=== PATIENT | male | born 1990 | race Caucasian/White ===

== ENCOUNTER 2023-09-23 14:24 | Emergency (ER) | payer OTHER, SELFPAY ==
[2023-09-23 14:31] VITALS: BP 143/82; RESP 16; O2SAT 100; BMI 32.5
[2023-09-23 14:45] VITALS: PULSE 163; O2SAT 99
--- NOTE | 2023-09-23 14:45 | ED.NURSE ---
at bedside. Carotid artery massage completed by . HR returned to normal sinus rhythm. Continued to [facility].
[2023-09-23 14:55] VITALS: BP 140/95; PULSE 103; O2SAT 95
[2023-09-23 15:00] VITALS: PULSE 104; O2SAT 96
[2023-09-23 15:01] VITALS: BP 135/83; PULSE 100; O2SAT 96
--- NOTE | 2023-09-23 15:01 | ED.GENADULT ---
HPI - General Adult General Chief complaint: Chest Pain Stated complaint: Elevated heartrate Time Seen by Provider: 09/23/23 14:42 History of Present Illness HPI narrative: This 33-year-old male comes in with increased heart rate. He arrives with a heart rate at around 165 beats per minute. He states that this started about an hour prior to arrival. He states that he has just a slight bit of chest discomfort. He thinks this might have happened once before for very brief time with spontaneous resolution. He does report positive COVID result in the last week or so. He denies having any lightheadedness, nausea, vomiting, shortness of breath, or diaphoresis. He does not have any exercise intolerance. He is otherwise in good health. Related Data Home Medications Medication Instructions Recorded Confirmed calcium carbonate 200 mg calcium 200 mg PO .PRN 07/30/23 07/30/23 (500 mg) chewable tablet (Tums) omeprazole 10 mg capsule,delayed 10 mg PO ONCE 07/30/23 07/30/23 release Previous Rx's Medication Instructions Recorded pantoprazole 20 mg tablet,delayed 40 mg (2 x 20 mg) PO BID Gerd 30 08/06/23 release (Protonix) days #120 tabs Allergies Allergy/AdvReac Type Severity Reaction Status Date / Time No Known Drug Allergies Allergy Verified 07/30/23 13:34 Review of Systems Status of ROS: Reports: 10 or more systems reviewed and unremarkable except as noted in History and below Narrative: Constitutional: No fevers, no weight gain or loss. Eyes: No discharge. No vision changes. HENT: No congestion, no sore throat, no ear pain. Cardiovascular: No palpitations. Respiratory: No shortness of breath, no wheezes, no cough. Gastrointestinal: No abdominal pain, no vomiting, no diarrhea. Genitourinary: No dysuria, no hematuria. Musculoskeletal: Normal range of motion. Skin: No rashes, no pruritis. Neurological: No dizziness, weakness, sensory change, speech change. Endo/Heme/Allergies: No bruising or bleeding. No polydipsia. Pysch: no suicidality, no anxiety, no insomnia. All other systems reviewed and are negative. [facility] Medical History (Updated 09/23/23 @ 15:06 by Krishna Henry MD) GERD (gastroesophageal reflux disease) ?K21.9 - Gastro-esophageal reflux disease without esophagitis (ICD-10) Chest pain ?R07.9 - Chest pain, unspecified (ICD-10) Social History Smoking Status: Never smoker Do you use any of these nicotine containing products: Smokeless Tobacco Second hand tobacco smoke exposure: No How often do you have a drink containing alcohol: 2-4 times a month AUDIT-C Alcohol total score: 2 Non-prescribed substance use: denies use service: No Exam Narrative: Exam Narrative: Constitutional: Well-developed, well-nourished, no acute distress. HEENT: Normocephalic, atraumatic. Neck: Normal range of motion. Nontender. Supple. Heart: Regular. No murmurs. Tachycardia, rate around 165 beats per minute. Intact distal pulses. Lungs: Clear to auscultation. No chest discomfort. No wheezes, rhonchi, or rales. Abdomen: Normal bowel sounds. Nontender. No rebound tenderness. Genitalia: Deferred. Back: No midline tenderness. Normal range of motion. Extremities: Normal range of motion. No injury. Skin: Intact. No rash. Warm. No erythema or pallor. Neurologic: No altered sensation. No weakness. Alert and oriented. Psychiatric: No suicidality. No anxiety or depression. No insomnia. Nursing notes and vitals signs are reviewed. Const: Vital Signs, click to edit/add: Vital Signs - 24 hr 09/23/23 14:31 Respiratory Rate 16 Blood Pressure [Ri ght Upper Arm] 143/82 H Pulse Oximetry 100 Oxygen Delivery Me thod Room Air Course Vital Signs Vital signs: Initial Vital Signs Respiratory Rate 16 09/23/23 14:31 Blood Pressure 143/82 H 09/23/23 14:31 Blood Pressure Mean 102 09/23/23 14:31 Pulse Oximetry 100 09/23/23 14:31 Oxygen Delivery Method Room Air 09/23/23 14:31 Vital Signs Respiratory Rate 16 09/23/23 14:31 Blood Pressure 143/82 H 09/23/23 14:31 Pulse Oximetry 100 09/23/23 14:31 Oxygen Delivery Method Room Air 09/23/23 14:31 Respiratory Rate 16 09/23/23 14:31 Blood Pressure 143/82 H 09/23/23 14:31 Pulse Oximetry 100 09/23/23 14:31 Oxygen Delivery Method Room Air 09/23/23 14:31 Medical Decision Making MDM Narrative Medical decision making narrative: This patient comes in with super ventricular tachycardia as seen on EKG showing of rate of 165 beats per minute. As the nurse was preparing to place an IV I had the patient perform a Valsalva maneuver with no results. I then did carotid massage which did bring him back rather quickly into normal sinus rate and rhythm. A repeat EKG does confirm normal sinus rhythm with a rate of 97 beats per minute. I did discuss lab and imaging options that can be done which the patient and his significant other declined in a process of shared decision making. The patient does chew tobacco and does drink energy drinks. I cautioned him about these things and stated that the energy drinks can contribute to an episode like this. Additionally there could be some dysrhythmia related to his COVID diagnosis. Patient feels back to normal and is okay to be discharged home. He will return if symptoms are recurrent and persistent. ECG Data Attestation: I personally reviewed and interpreted this ECG as follows: Interpretation: Supraventricular tachycardia, rate 165 beats per minute. There are no specific ST or T-wave abnormalities. Repeat EKG after carotid massage shows normal sinus rhythm with a rate of 97 beats per minute. There are no ST or T-wave abnormalities. Discharge Plan Discharge Clinical Impression: Supraventricular tachycardia Patient Disposition: Home, Self-Care Condition: Improved Additional Instructions: Continue current plans. Cessation of chewing tobacco is advised. Caution use of stimulant drinks also. Follow up with MD or return if symptoms are recurrent or persistent. Prescriptions: No Action omeprazole 10 mg capsule,delayed release(DR/EC) 10 mg PO ONCE calcium carbonate [Tums] 200 mg calcium (500 mg) tablet,chewable 200 mg PO .PRN pantoprazole [Protonix] 20 mg tablet,delayed release (DR/EC) 40 mg PO BID 30 Days Qty: 120 2RF Follow Up/Referrals: Jude Hebert MD [Primary Care Provider] - Stand Alone Forms: Patient Feed Info Instructions
== END 2023-09-23 15:21 | disposition home or self-care (01) ==
LOC: ED 15:16
PROVIDERS: Emergency Provider Emergency Medicine Emergency Medical Services; PCP Internal Medicine
DX: I47.10 Supraventricular tachycardia, unspecified (principal)
CPT/HCPCS: 93005; 99284

== ENCOUNTER 2023-12-18 17:04 | Outpatient (CLI) | payer OTHER, SELFPAY | END 2023-12-18 17:05 | disposition home or self-care (01) | PROVIDERS: PCP Internal Medicine; Visit Provider Internal Medicine | DX: R53.1 Weakness (principal) | CPT/HCPCS: 80053; 82306; 84443 ==

== ENCOUNTER 2024-01-03 15:44 | Outpatient (CLI) | payer OTHER, SELFPAY ==
--- NOTE | 2024-01-03 16:00 | CRLHL7_ITS ---
For Patients: As a result of the Century Cures Act, medical imaging exams and procedure reports are released immediately into your electronic medical record. You may view this report before your referring provider. If you have questions, please contact your health care provider. Indication: Chronic sinusitis. Technique: Noncontrast axial CT of the paranasal sinuses with coronal reformats are provided. No comparisons. Findings: Mild mucosal thickening within the floor of the right maxillary sinus measuring 5 millimeters in thickness. Trace mucosal thickening within the floor of the left maxillary sinus. The remainder of the visualized paranasal sinuses are clear. Incidental right-sided koko bullosa. The ostiomeatal complexes are patent bilaterally. The visualized intraorbital contents appear within normal limits. Leftward nasal septal deviation with bony spur contacting the inferior left turbinate. Impression: 1. Mild right maxillary sinus mucosal thickening with trace mucosal thickening in left maxillary sinus. 2. Leftward nasal septal deviation with bony spur contacting the inferior left turbinate. Please note that all CT scans at this facility use dose modulation, iterative reconstruction, and/or weight-based dosing when appropriate to reduce radiation dose to as low as reasonably achievable. Dictated by Linden Mcqueen MD @ 01/04/2024 10:21:41 AM (Electronically Signed)
== END 2024-01-03 15:45 | disposition home or self-care (01) ==
LOC: CT 15:46
PROVIDERS: PCP Internal Medicine; Visit Provider Internal Medicine
DX: J34.89 Other specified disorders of nose and nasal sinuses (principal); J32.9 Chronic sinusitis, unspecified; J32.0 Chronic maxillary sinusitis; J34.2 Deviated nasal septum
CPT/HCPCS: 70486

== ENCOUNTER 2024-01-31 07:26 | Outpatient (CLI) | payer OTHER, SELFPAY ==
--- NOTE | 2024-01-31 08:00 | CT_ITS ---
Patient: ENOCH COLVIN Facility:?[facility] RIS Patient ID:?[id number] Site Patient ID:?[id number]. Site :?[id number] Study:?CT-Abdomen/Pelvis W/ 119CC [id number]/8/2024 8:02:29 AM Ordering Physician:?MARVA HERNANDEZ Final Report: Indication: Abdominal pain Technique: CT Abdomen/Pelvis W/ 119CC [id number] Please note that all CT scans at this facility use dose modulation, iterative reconstruction, and/or weight-based dosing when appropriate to reduce radiation dose to as low as reasonably achievable. Comparison: None Findings: Pleural-based nodule left lower lobe measuring 6.9 millimeters, considered incidental. No basilar infiltrate or pleural effusion. Liver parenchyma is within normal limits. Spleen is upper limits of normal in size. No splenic lesion. The pancreas is within normal limits. Normal gallbladder. Adrenal glands are within normal limits. Normal kidneys. No hiatal hernia. No bowel obstruction or free air. No free fluid or adenopathy. No abscess. A small fat filled right inguinal hernia appears to be present measuring 2.1 cm. Normal bladder. Normal appendix. Prostate is not enlarged. The ureters are within normal limits. No fracture is present. Early spurring at both hip joints. Impression: Normal appendix. No bowel obstruction or inflammatory changes. 2.1 cm fat filled right inguinal hernia. Mild degenerative arthrosis both hips. Please note that all CT scans at this facility use dose modulation, iterative reconstruction, and/or weight-based dosing when appropriate to reduce radiation dose to as low as reasonably achievable. Dictated by Franklyn Mckeon MD @ 01/31/2024 10:17:18 AM Signed by:?Franklyn Mckeon MD @01/31/2024 10:17:18 AM (Electronic Signature)
== END 2024-01-31 07:27 | disposition home or self-care (01) ==
LOC: CT 07:27
PROVIDERS: PCP Internal Medicine; Visit Provider Internal Medicine
DX: R10.9 Unspecified abdominal pain (principal); K40.90 Unilateral inguinal hernia, without obstruction or gangrene, not specified as recurrent; M16.0 Bilateral primary osteoarthritis of hip
CPT/HCPCS: 74177; Q9967

== ENCOUNTER 2024-04-20 21:50 | Emergency (ER) | payer OTHER, SELFPAY ==
[2024-04-20 21:59] VITALS: BP 136/101; PULSE 76; RESP 16; TEMP 36.6; O2SAT 95; BMI 31.2
--- NOTE | 2024-04-20 21:59 | ED_ITS ---
HPI - General Adult General Date Seen: 04/20/24 Chief complaint: Arrhythmia/Palpitations Stated complaint: Fast heart rate Time Seen by Provider: 04/20/24 21:58 History of Present Illness HPI narrative: 34-year-old male with history of anxiety, GERD, palpitations, SVT (noted on EKG 09/23/2023 in the ER), chewing tobacco use, presenting to the ER today with palpitations. He has a known history of SVT. His 1st prolonged episode was actually last August. He was seen here in the ER and converted with carotid massage. He has been experiencing intermittent but very brief episodes of palpitations off and on ever since then. Recently had a Holter monitor through his primary care provider and has an appointment scheduled in a few days to see a professional employer consultant for the 1st time because of these episodes of palpitations. Today he had a short run of palpitations earlier this afternoon that he thinks was probably SVT and resolved with carotid massage. This evening he started having another run of palpitations. His smart watch told him his heart rate was 185. He tried Valsalva maneuvers, carotid massage, ice water on his face and other maneuvers to break the arrhythmia but it would not break. He felt a mild fluttering in a mild discomfort in his chest. It persisted for about a 1/2 hour so he and his came here. As he was going through the triage process he felt the arrhythmia break and his heart rate feels back to normal now. He has no ongoing symptoms. No recent vomiting or diarrhea. No swelling in his legs. No fever. No shortness of breath. No history of thyroid disorder. No recent weight loss or weight gain. No stimulants or sympathomimetics. He does chew tobacco. He quit caffeine and pop after his 1st run of SVT last fall. Related Data Home Medications ?Medication ?Instructions ?Recorded ?Confirmed calcium carbonate (Tums) 200 mg PO .PRN 07/30/23 03/30/24 Previous Rx's ?Medication ?Instructions ?Recorded fluoxetine 10 mg capsule (Prozac) 10 mg PO QDAY #30 caps 11/15/23 omeprazole 20 mg capsule,delayed 20 mg PO BID #180 caps 03/10/24 release Allergies Allergy/AdvReac Type Severity Reaction Status Date / Time No Known Drug Allergies Allergy Verified 03/30/24 15:16 [facility] Medical History (Updated 04/20/24 @ 23:23 by Car Ibarra MD) Palpitations ?R00.2 - Palpitations (ICD-10) History of supraventricular tachycardia ?Z86.79 - Personal history of other diseases of the circulatory system (ICD- 10) History of ankle sprain ?Z87.828 - Personal history of other (healed) physical injury and trauma (ICD-10) Abdominal pain ?R10.9 - Unspecified abdominal pain (ICD-10) Sinus pressure ?J34.89 - Other specified disorders of nose and nasal sinuses (ICD-10) Anxiety ?F41.9 - Anxiety disorder, unspecified (ICD-10) GERD (gastroesophageal reflux disease) ?K21.9 - Gastro-esophageal reflux disease without esophagitis (ICD-10) Social History Smoking Status: Never smoker Do you use any of these nicotine containing products: None and Smokeless Tobacco Second hand tobacco smoke exposure: No How often do you have a drink containing alcohol: 2-4 times a month AUDIT-C Alcohol total score: 2 Non-prescribed substance use: denies use Little interest or pleasure in doing things: not at all Feeling down, depressed, or hopeless: not at all service: No Exam Narrative: Exam Narrative: Constitutional: Appears well-developed and well-nourished. Alert. Conversant. Non toxic. HENT: Head: Atraumatic. Nose: Nose normal. Mouth/Throat: Oral mucosa is clear and moist. no trismus. Pharynx normal. Tonsils symmetric. No tonsillar enlargement, erythema, or exudate. Eyes: Conjunctivae normal. EOM normal. Pupils equal, round, and reactive to light. No scleral icterus. Neck: Normal range of motion. Neck supple. No tracheal deviation present. Cardiovascular: Normal rate, regular rhythm. No gallop. No friction rub. No murmur heard. Symmetric radial artery pulses . No JVD Pulmonary/Chest: Effort normal. No stridor. No respiratory distress. No wheezes. No rales. No rhonchi . No tenderness. Abdominal: Soft. Bowel sounds normal. No distension. No mass. No tenderness. No rebound. No guarding. Musculoskeletal: RUE: Normal range of motion. No tenderness. No deformity LUE: Normal range of motion. No tenderness. No deformity RLE: Normal range of motion. No edema. No tenderness. No deformity LLE: Normal range of motion. No edema. No tenderness. No deformity Endocrine: No thyromegaly Neurological: Alert and oriented to person, place, and time. Normal strength. CN II-VII intact. No sensory deficit. GCS eye subscore is 4. GCS verbal subscore is 5. GCS motor subscore is 6. Normal coordination Skin: Skin is warm and dry. No rash noted. No pallor. Normal capillary refill. Psychiatric: Normal mood. Normal affect. Const: Vital Signs, click to edit/add: Vital Signs - 24 hr 04/20/24 21:59 Temperature 97.8 F Pulse Rate [Pulse Oximeter] 76 Respiratory Rate 16 Blood [facility]] 136/101 H Pulse Oximetry 95 Oxygen Delivery Me thod Room Air Course Vital Signs Vital signs: Initial Vital Signs Temperature 97.8 F 04/20/24 21:59 Temperature Source Temporal Artery Scan 04/20/24 21:59 Pulse Rate 76 04/20/24 21:59 Respiratory Rate 16 04/20/24 21:59 Blood Pressure 136/101 H 04/20/24 21:59 Blood Pressure Mean 112 H 04/20/24 21:59 Blood Pressure Position Sitting 04/20/24 21:59 Pulse Oximetry 95 04/20/24 21:59 Oxygen Delivery Method Room Air 04/20/24 21:59 Vital Signs Temperature 97.8 F 04/20/24 21:59 Pulse Rate 76 04/20/24 21:59 Respiratory Rate 16 04/20/24 21:59 Blood Pressure 136/101 H 04/20/24 21:59 Pulse Oximetry 95 04/20/24 21:59 Oxygen Delivery Method Room Air 04/20/24 21:59 Temperature 97.8 F 04/20/24 21:59 Pulse Rate 76 04/20/24 21:59 Respiratory Rate 16 04/20/24 21:59 Blood Pressure 136/101 H 04/20/24 21:59 Pulse Oximetry 95 04/20/24 21:59 Oxygen Delivery Method Room Air 04/20/24 21:59 Medications Administered Medications: Discontinued Medications Generic Name Dose Route Start Last Admin Trade Name Freq PRN Reason Stop Dose Admin Potassium Bicarbonate 25 meq 04/20/24 23:02 04/20/24 23:09 Potassium Bicarb 25 Meq Effervescent Tab PO 04/20/24 23:03 25 meq ONCE ONE Administration Medical Decision Making MDM Narrative Medical decision making narrative: This patient presents for evaluation of palpitations. . He reported a persistent tachycardia with heart rate over 185 for about 30 minutes at home for him. He felt his rhythm break when he was doing the ER triage process and now has normal sinus rhythm. He maintained normal sinus rhythm without dysrhythmia or ectopy during the remainder of his ER stay. Initial ECG shows normal sinus rhythm and no dysrhythmogenic abnormality such as WPW, prolonged QT, Brugada syndrome, and no ischemia. monitoring coordinator while the patient here in the ER showed no dysrhythmia or ectopy. A broad differential diagnosis was considered including SVT, Atrial fibrillation, ventricular arrhythmia, thyroid disease, a cute electrolyte abnormality, drugs/medications, caffeine intake or other stimulants, medication side effect, anemia, heart disease, PE, among others. The workup and exam here in ED shows not specific cause of the patient's palpitations, and no risks factors to warrant admission. Clinical judgement suggests that supportive outpatient management is indicated. Will arrange an outpatient Holter monitor and recommend follow up with Cardiology. He has an appointment scheduled for 3 days from now, on . Lab Data Labs: Lab Results 04/20/24 04/20/24 Range/Units 22:13 22:22 WBC 6.06 (4.50-11.00) K/uL RBC 5.07 (4.30-5.90) m/uL Hgb 15.8 (13.5-17.5) gm/dL Hct 42.5 (37.0-53.0) % MCV 84 (80-100) fL MCH 31 (26-34) pg MCHC 37 H (32-36) gm/dL RDW Coeff of Rosa Maria 12.2 (11.5-15.5) % Plt Count 201 (140-440) K/uL Neut % (Auto) 54.6 (42.0-72.0) % Lymph % (Auto) 36.0 (20-44) % Hendry % (Auto) 7.3 (0.0-11.0) % Eos % (Auto) 1.7 (0.0-7.0) % Baso % (Auto) 0.2 (0.0-3.0) % Neut # (Auto) 3.32 (1.7-7.0) K/uL Lymph # (Auto) 2.18 (0.90-2.90) K/uL Hendry # (Auto) 0.40 (0.00-0.90) K/UL Eos # (Auto) 0.10 (0.00-0.50) K/uL Baso # (Auto) 0.01 (0.00-0.30) K/uL Abs Immat Gran (auto) 0.01 (0.00-0.30) K/uL Imm/Tot Granulo (auto) 0.2 % Sodium 139 (135-149) mmol/L Potassium 3.3 L (3.6-5.1) mmol/L Chloride 108 (96-114) mmol/L Carbon Dioxide 23 (20-32) mmol/L Anion Gap 8 (7-15) mEq/L BUN 18 (5-24) mg/dL Creatinine 0.7 (0.5-1.5) mg/dL Estimated Creat Clear 164.75 Estimated GFR 125 ml/min Glucose 127 H (60-115) mg/dL Calcium 9.0 (8.4-10.6) mg/dL TSH 2.990 (0.270-4.200) uIU/mL POC Troponin I 0.00 L (0.01-0.04) ng/ml ECG Data Attestation: I personally reviewed and interpreted this ECG as follows: Interpretation: Normal sinus rhythm Rate: 79 DE: 194. No delta waves. QRS axis: Normal axis. No pathologic Q-waves. ST segment/T wave: No ST segment elevation or depression. No Brugada syndrome. No prolonged QT. QTc: 419 Discharge Plan Discharge Clinical Impression: Supraventricular tachycardia Patient Disposition: Home, Self-Care Condition: Stable Instructions: Supraventricular Tachycardia (ED) Additional Instructions: Please come back to the ER right away if you have any concerns especially more palpitations or tachycardia they are not able control by your usual maneuvers or if you have other symptoms such as chest pain, lightheadedness or fainting, severe shortness of breath, or free of any other problems. Please follow-up with your professional employer consultant by . Prescriptions: No Action calcium carbonate [Tums] 200 mg calcium (500 mg) tablet,chewable 200 mg PO .PRN fluoxetine [Prozac] 10 mg capsule 10 mg PO QDAY Qty: 30 3RF omeprazole 20 mg capsule,delayed release(DR/EC) 20 mg PO BID Qty: 180 0RF Follow Up/Referrals: Jerrell Holman MD [Primary Care Provider] - Stand Alone Forms: [employer] Info Instructions
[2024-04-20 22:30] LABS: Basophils Absolute Auto 0.01 K/uL (0.00-0.30); Basophils Percent Auto 0.2 % (0.0-3.0); Eosinophils Percent Auto 1.7 % (0.0-7.0); Hematocrit 42.5 % (37.0-53.0); Hemoglobin* 15.8 gm/dL (13.5-17.5); Immature Granulocytes Abs Auto 0.01 K/uL (0.00-0.30); Immature Granulocytes Pct Auto 0.2 %; Lymphocytes Absolute Auto 2.18 K/uL (0.90-2.90); Mean Corpuscular HGB Conc 37 gm/dL (32-36); Mean Corpuscular Hemoglobin 31 pg (26-34); Mean Corpuscular Volume 84 fL (80-100); Monocytes Percent Auto 7.3 % (0.0-11.0); Neutrophils Absolute Auto 3.32 K/uL (1.7-7.0); Neutrophils Percent Auto 54.6 % (42.0-72.0); Platelet Count* 201 K/uL (140-440); RDW Coefficient of Variation % 12.2 % (11.5-15.5); Red Blood Count 5.07 m/uL (4.30-5.90); White Blood Count* 6.06 K/uL (4.50-11.00)
[2024-04-20 22:31] LABS: Slide Review Reflex No
[2024-04-20 22:43] LABS: Chloride* 108 mmol/L (96-114)
[2024-04-20 22:44] LABS: Potassium* 3.3 mmol/L (3.6-5.1); Sodium* 139 mmol/L (135-149)
[2024-04-20 22:46] LABS: Creatinine* 0.7 mg/dL (0.5-1.5); Est. Creatinine Clearance* 164.75; Estimated Glomerular Filt Rate 125 ml/min
[2024-04-20 22:47] LABS: Anion Gap 8 mEq/L (7-15); Blood Urea Nitrogen* 18 mg/dL (5-24); Carbon Dioxide* 23 mmol/L (20-32); Glucose* 127 mg/dL (60-115)
[2024-04-20] MEDS: POTASSIUM BICARB 25 MEQ EFFERVESCENT TAB PO (23:09)
== END 2024-04-20 23:31 | disposition home or self-care (01) ==
PROVIDERS: Emergency Provider Emergency Medicine; PCP Internal Medicine
DX: I47.10 Supraventricular tachycardia, unspecified (principal)
CPT/HCPCS: 36415; 80048; 84443; 84484; 85025; 99282; 99283; A9270

== ENCOUNTER 2024-06-26 16:43 | Emergency (ER) | payer OTHER, SELFPAY ==
[2024-06-26 16:53] VITALS: BP 136/75; PULSE 68; RESP 18; TEMP 36.6; O2SAT 98; BMI 31.9
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
--- NOTE | 2024-06-26 17:26 | CRLHL7_ITS ---
For Patients: As a result of the Cures Act, medical imaging exams and procedure reports are released immediately into your electronic medical record. You may view this report before your referring provider. If you have questions, please contact your health care provider. Indication: Crush injury. Technique: Right wrist, 3 views. Comparison: None. Findings: Bones: Alignment is normal. No fractures or bone lesions. Joint spaces: Unremarkable. Soft tissues: Unremarkable. Impression: No sign of acute injury. Dictated by Olga Bradley MD @ 06/26/2024 7:05:42 PM (Electronically Signed)
--- OUTSIDE RECORDS SUMMARY | 2024-06-26 17:41 | XMS_ITS | Clinical Summary ---
Author Organization [facility] Address [address] [place] [id number] Phone [email or web address] Staffing Care Team Providers Care Horse Stud Manager Name Role Phone Unavailable Primary Care Provider Unavailabl e Encounters Date Type Department Care Team Description 06/24/2024 Claims Summary [facility] [address] [place] [address] Provider, Claims Summary MD Kwesi from Last 3 Months Social History Tobacco Use Types Packs/Day Years Used Date Smoking Tobacco: Never Assessed Sex and Gender Information Value Date Recorded Sex Assigned at Not on file Gender Identity Not on file Sexual Orientation Not on file Plan of Treatment Not on file
--- OUTSIDE RECORDS SUMMARY | 2024-06-26 17:41 | XMS_ITS | Clinical Summary ---
Author Organization [facility] Address [place], [place] [address] Care Team Providers Care Roll Changer Name Role Phone [employer] Primary Care Provider [phone] Allergies No known active allergies Medications Medication Sig Dispensed Refills Start Date End Date Status metoprolol succinate (Toprol XL) 25 mg Sustained-Release tabletIndications:SVT (supraventricular tachycardia) (HC) Take 1 Tablet (25 mg) by mouth once daily. 90 Tablet 4 04/23/2024 Active Active Problems No known active problems Encounters Date Type Department Care Team Description 04/23/2024 10:30 AM CDT Office Visit [facility] [address] [place] [address] Ravi Garcia MD 04/10/2024 Orders Only [facility] [address] [place] [address] Génesis Flores 1 scan: (1-Ord) Final from Last 3 Months Immunizations Name Administration Dates Next Due DTaP 02/12/1996, 2,1991,1991,03/05 Hepatitis B (Peds) 01/03/2000,07/19/1999, 999 Hib Conjugate, Unspecified 04/14/1992,1991 ,1991,1991 Inactivated Polio Vaccine 02/12/1996,04/14/1992, 1991,1991 MMR 04/27/2002,05/31/1999 Tdap 12/10/2012 Family History Relation Name Status Comments Father Alive Mother Alive Social History Tobacco Use Types Packs/Day Years Used Date Smoking Tobacco: Never Smokeless Tobacco: Current Chew Alcohol Use Standard Drinks/Week Comments Yes 0.8 (1 standard drink = 0.6 oz p ure alcohol) Social Connections Answer Date Recorded Frequency of Communication with Friends and Fami ly Not on file 04/23/2024 Sex and Gender Information Value Date Recorded Sex Assigned at Not on file Gender Identity Not on file Sexual Orientation Not on file Obstetrics History Last Filed Vital Signs Vital Sign Reading Time Taken Comments Blood Pressure 120/78 06/23/2014 4:23 PM CDT Pulse 64 12/10/2012 4:25 PM DIRECTOR OF OCCUPATIONAL HEALTH Temperature 36.3 ??C (97.4 ??F) 06/23/2014 4:23 PM CD T Respiratory Rate 16 04/27/2011 10:08 PM CDT Oxygen Saturation 100% 04/27/2011 10:08 PM CDT Inhaled Oxygen Concentration - - Weight 90.7 kg (200 lb) 06/23/2014 4:23 PM CDT Height 180.3 cm (5' 11) 12/10/2012 4:25 PM DIRECTOR OF OCCUPATIONAL HEALTH Body Mass Index 27.89 12/10/2012 4:25 PM DIRECTOR OF OCCUPATIONAL HEALTH Plan of Treatment Upcoming Encounters Date Type Department Care Team (Late st Contact Info) Description 07/20/2024 3:00 PM CDT Office Visit [facility] [address] [facility] [address] [place] [id number] Rinku Maguire MD [address] [facility] [address] [place], [place] [id number] Health Maintenance Due Date Last Done Comments Depression screening for age 12+ 2003 HIV for age 15-65 2006 BMI (ht and wt on same day) for age 18+ 2009 Hepatitis C screening for ag e 18-79 2009 Tetanus booster 12/10/2022 12/10/2012 COVID-19 vaccine series (2022- season) 2023 Influenza for age 9-49 07/26/2024 Tdap Completed 12/10/2012 Pneumococcal series for age 6-64 Aged Out No longer eligible based on patient's age to complete this topic Procedures Procedure Name Priority Date/Time Associated Diagnosis Comments EXTENDED HOLTER Routine 04/10/2024 Palpitations from Last 3 Months Results * EXTENDED HOLTER (04/10/2024) Jerrell Holman MD [facility] ORD from Last 3 Months Care Teams Roll Changer Relationship Specialty Start Date End Date [facility] [address] [place] [id number] PCP - General 07/14/18
--- OUTSIDE RECORDS SUMMARY | 2024-06-26 17:41 | XMS_ITS | Encounter Summary ---
Author Organization [facility] Address [address] [place] [address] Phone [email or web address] Care Team Providers Care Search And Rescue Officer Name Role Phone Unavailable Primary Care Provider Unavailabl e Encounter Details Date Type Department Care Team (Late st Contact Info) Description 06/24/2024 Claims Summary [facility] [address] [place] [address] Provider, Claims Summary External[facility] [address] [place] [id number] Social History Tobacco Use Types Packs/Day Years Used Date Smoking Tobacco: Never Assessed Sex and Gender Information Value Date Recorded Sex Assigned at Not on file Gender Identity Not on file Sexual Orientation Not on file documented as of this encounter Plan of Treatment Not on file documented as of this encounter Visit Diagnoses Not on filedocumented in this encounter
--- OUTSIDE RECORDS SUMMARY | 2024-06-26 17:41 | XMS_ITS | Continuity of Care Document ---
Author Organization [facility] Address [address] [address] [place] [address] Phone Care Team Providers Care Public Speaking Instructor Name Role Phone Az FIELDS, Irineo Unavailable Unavailable Advance Directives Directive Yes / No Effective Date File Name No Information Encounters Encounter Description Practice Location Reason(s) For Visit Diagnoses Date Provider Providers Copied on Encounter [facility], [address] [address], [place], [place], [id number], [place] tel:[phone] [facility] No Information Az Cabello. [address] [address], [place], [place], [id number], [place]. tel:[phone] Family History Family Member Type Diagnosis Age At Onset No Information Immunizations Vaccine Date Status Comments tetanus toxoid, reduced diphtheria toxoid, and acellular pertussis vaccine, adsorbed administered Note: [facility] bi-direct ional interface ; Source: Other Registry measles, mumps and rubella virus vaccine administered Note: [facility] bi-direct ional interface ; Source: Other Registry [facility] administered Note: [facility] bi-directional interface ; Source: Other Registry [facility] administered Note: [facility] bi-directional interface ; Source: Other Registry measles, mumps and rubella virus vaccine administered Note: [facility] bi-direct ional interface ; Source: Other Registry [facility] administered Note: [facility] bi-directional interface ; Source: Other Registry diphtheria, tetanus toxoids and acellular pertussis vaccine administered Note: [facility] b i-directional interface ; Source: Other Registry poliovirus vaccine, inactivated administe red Note: [facility] bi- directional interface ; Source: Other Registry Haemophilus influenzae type b vaccine, conjugate unspecified formulation administered Note: [facility] bi-direct ional interface ; Source: Other Registry diphtheria, tetanus toxoids and acellular pertussis vaccine administered Note: [facility] b i-directional interface ; Source: Other Registry poliovirus vaccine, inactivated administe red Note: [facility] bi- directional interface ; Source: Other Registry Haemophilus influenzae type b vaccine, conjugate unspecified formulation administered Note: [facility] bi-direct ional interface ; Source: Other Registry diphtheria, tetanus toxoids and pertussis vaccine administered Note: [facility] bi-direct ional interface ; Source: Other Registry poliovirus vaccine, inactivated administe red Note: [facility] bi- directional interface ; Source: Other Registry Haemophilus influenzae type b vaccine, conjugate unspecified formulation administered Note: [facility] bi-direct ional interface ; Source: Other Registry diphtheria, tetanus toxoids and pertussis vaccine administered Note: [facility] bi-direct ional interface ; Source: Other Registry poliovirus vaccine, inactivated administe red Note: [facility] bi- directional interface ; Source: Other Registry Haemophilus influenzae type b vaccine, conjugate unspecified formulation administered Note: [facility] bi-direct ional interface ; Source: Other Registry diphtheria, tetanus toxoids and pertussis vaccine administered Note: [facility] bi-direct ional interface ; Source: Other Registry Payers Payer name Insurance type Covered libertarian ID Authoriza tion(s) No Information Social History Type Description Quantity Date Captured Comments Sex Male Smoking Status No Information Chief Complaint And Reason For Visit No Information Reason For Referral Reason For Referral No Information History Of Present Illness Encounter Date Complaint History Of Prese nt Illness No Information Functional Status Date Functional Assessmen t No Information Instructions Date Instruction Additional Infor mation No Information Assessments Type Assessment Date No Information Patient Care Teams Name Effective Dates (start - stop) Status Members No Information
[2024-06-26] MEDS: MORPHINE 10 MG/ML inj IM (17:43)
--- NOTE | 2024-06-26 21:00 | P.ORCN_ITS ---
History of Present Illness HPI Date Seen: 06/26/24 Consult date: 06/26/24 Requesting physician: Pili Beebe Chief complaint: Pinched right arm under car Narrative: Orthopedics consulted on a pleasant 34-year-old male with crush injury to his right forearm, date of injury 06/26/2024 around 1600 hours. Patient races cars, and was at [employer]. They were working on a car, using a drive-on car lift. Patient was using the lowering mechanism when the car lowered unexpectedly too quick, causing the car to shift against his right upper extremity compressing the volar forearm against a cylindrical metal bar while the car rested against his dorsum forearm. He estimates the weight was approximately 2000 lb against his forearm. Also estimates that he was stuck in this position for 1 minute until they were able to release the pressure. Pain was present involving this region of his forearm, and once pressure was released, he noted numbness involving his thumb, index, long, and part of his ring finger. He had a difficult time moving his fingers due to pain through the volar wrist. Eventually swelling presented. Due to pain, swelling, and numbness, he presented to [facility] ER. Radiographs acquired showing no acute fractures. Clinically, patient reports that his thumb is no longer numb; he has complete sensation of this right thumb. Still notes some mild numbness involving the index, long, and radial aspect of his ring finger, with associated tingling especially involving the tips of these fingers. This is a change in symptoms since initial injury. He notes some numbness over the volar distal 3rd forearm along with swelling and tension. He is able to move his fingers gently without significant discomfort, but trying to extend his fingers and wrist back produces discomfort and stretch along the distal volar forearm. Denies any pain through the palmar or dorsal hand. No pain proximal forearm, or elbow. Patient was given morphine around 1500 hours, and states that he still feels some of the effects of this. During our conversation, patient also felt a little hot and sweaty stating that he has not eaten for a while. His significant other also comments that he chews tobacco, and has not had chew tobacco for several hours. Additionally, patient comments that for the last few weeks to months, he has experienced numb hands bilaterally when waking up from sleep. Denies any issues with numbness in his small finger or ulnar aspect of his ring finger when holding his phone up to his ear for a long period of time. Review of Systems 2 Narrative: No recent illnesses, or infections. Patient comments that he is a generally healthy individual though does have a history of SVT, and takes metoprolol for this. States that he chews tobacco. [facility] Medical History History of ankle sprain ?Z87.828 - Personal history of other (healed) physical injury and trauma (ICD-10) Social History Smoking Status: Never smoker Do you use any of these nicotine containing products: None and Smokeless Tobacco Second hand tobacco smoke exposure: No How often do you have a drink containing alcohol: 2-4 times a month AUDIT-C Alcohol total score: 2 Non-prescribed substance use: denies use Little interest or pleasure in doing things: not at all Feeling down, depressed, or hopeless: not at all service: No Meds Home Medications and Allergies Home Medications ?Medication ?Instructions ?Recorded ?Confirmed ?Type calcium carbonate (Tums) 200 mg PO .PRN 07/30/23 05/19/24 History metoprolol succinate 25 mg 25 mg PO DAILY 05/19/24 06/26/24 History tablet,extended release 24 hr fexofenadine 60 mg tablet ([place] 60 mg PO Q24H 06/26/24 06/26/24 History Allergy) Allergies Allergy/AdvReac Type Severity Reaction Status Date / Time No Known Drug Allergies Allergy Verified 06/26/24 16:55 Ortho Exam Narrative Exam Narrative: General: Well-developed, well-nourished, A&Ox 3, no apparent acute distress. Pulmonary: Breathing pattern regular, even, without apparent distress or audible wheeze present. Right wrist/hand/forearm: * No noted abrasions, skin punctures, or ecchymosis; no erythematous streaking. * There is an area of erythema running obliquely across his volar forearm from more mid forearm ulnar aspect to distal radial aspect. This erythema measures approximately 2-3 cm and width. * There is swelling noted to the forearm, especially volar distal 1/3 forearm * Tension noted through the distal volar 1/3 forearm * Specific forearm compartments: - moderate tender distal 1/3 volar forearm - nontender dorsal forearm - mild discomfort distal lateral 1/3 forearm along the extensor carpi radialis longus and brevis muscle bellies * Specific hand compartments: -nontender hypothenar, thenar, abductor pollicis, dorsal interossei, and volar interossei * Active wrist extension to approximately 7-10 degrees; active MCP extension to neutral at 0?. Beyond these thresholds there is discomfort and more of a stretch volar distal 1/3 forearm * Passive wrist extension/stretch reached approximately 30? with tension and stretch volar distal 1/3 forearm; but patient did not present with pain out of proportion. During this test, patient MCPs were at 0? * Intrinsic negative position is painful, but again not pain out of proportion * Decreased sensation to light and sharp touch index, long, and ring fingers, with subjective reports of tingling in the tips of these fingers. However, sensation though decreased, is not completely absent. More notable numbness distal 1/3 volar aspect forearm, more ulnar aspect, ulnar to the flexor palmaris longus tendon. Complete intact sensation involving the thumb. Completely intact sensation involving the small digit and ulnar aspect of the ring digit. * Nontender to palpation and percussion distal radius, and distal ulna. No gross deformity to the wrist/forearm. * 2+ radial and ulnar pulses pulse, pink, warm digits with brisk cap refills; grossly, intact dermatomes and myotomes distally (radial, ulnar, and median nerve distributions) with as mentioned above, decreased sensation involving the median nerve distribution Const Vital Signs, click to edit/add: Vital Signs - 24 hr 06/26/24 16:53 Temperature 98 F Pulse Rate [Pulse Oximeter] 68 Respiratory Rate 18 Blood Pressure [Left Upper Arm] 136/75 Pulse Oximetry 98 Oxygen Delivery Method Room Air Results Diagnostic results Wrist/Hand x-ray: report reviewed and image reviewed Additional Comments: Three views right wrist ordered by different provider [facility] dated 06/26/2024. These images were reviewed and corroborated with the radiology report showing no acute fractures, avulsions, or interosseous pathology. No loose bodies. There is some soft tissue swelling volar aspect of the distal wrist. Assessment and Plan Assessment and plan (1) Crushing injury of right arm: Status: Acute Plan We had a thorough and lengthy discussion regarding his injury/pathology. Initially, concern was for acute compartment syndrome volar compartment of his forearm. Since initial injury time, symptoms have improved, now patient states that his numbness has resolved involving the thumb; some mild numbness of the index with tingling in the tip, and the most residual numbness involving the long finger yet tingling at the tip. Ring finger also mostly resolved. When he arrived to the ER, he was not able to extend his fingers or wrist to a neutral position without notable pain and stretch volar forearm; however, since his time in the ER, he can now comfortably and without pain have his wrist and hands resting in the anatomic position. The fiberglass splint that was applied dorsally has also given him some relief. We applied this splint to allow the wrist to rest. The splint stops just proximal to the MCPs, thus allowing some extension of the MCPs. Furthermore, we discussed obtaining compartment pressures here in the ER. However, because of his symptom improvement (notably improving digit paresthesias, and improving passive stretch) with shared decision making, we elect to not obtain compartment pressures and observe symptoms over the next 12- 24 hours. He is comfortable with this plan. For pain, I would like him to avoid any narcotics, alcohol, or other possible pain relieving medications stronger than ibuprofen or Tylenol in order that he can become acutely aware if symptoms of the wrist and hand are worsening. Worsening of symptoms would be increasing tension through the forearm hand and/or digits including pain with passive stretch of the fingers, new numbness, pain out of proportion, paralysis of the hand/wrist, notable palpable swelling, or absent peripheral pulses. If above symptoms present, he should return to the ER at which point emergent referral to hand/wrist trauma would be prudent. Okay to take acetaminophen and ibuprofen for discomfort, ice, elevate, gentle finger motion. Consider wearing the splint as much as possible to allow the wrist to rest and not to aggravate tension through the volar forearm. He may come out of the splint p.r.n. for bathing, icing, or to monitor symptoms. We would like to see patient for follow-up in our [facility] next week. Explained to patient that if symptoms continue to improve, but some numbness lingers, then elective open carpal tunnel release may be considered. An EMG/NCS may also be helpful in diagnosis, especially with his noted history of bilateral hand numbness when sleeping. Thank you for allowing me to participate in the patient's care.
[2024-06-26 21:47] VITALS: PULSE 76; RESP 18; O2SAT 99
== END 2024-06-26 21:52 | disposition home or self-care (01) ==
PROVIDERS: Emergency Provider Family Medicine; PCP Internal Medicine
DX: S47.1XXA Crushing injury of right shoulder and upper arm, initial encounter (principal); W23.0XXA Caught, crushed, jammed, or pinched between moving objects, initial encounter
CPT/HCPCS: 73110; 96372; 96374; 99284; J2270

== ENCOUNTER 2025-06-23 14:21 | Outpatient (CLI) | payer OTHER, SELFPAY | END 2025-06-23 14:22 | disposition home or self-care (01) | LOC: NFLDREF 14:22 | PROVIDERS: PCP Internal Medicine; Visit Provider Internal Medicine | DX: N52.9 Male erectile dysfunction, unspecified (principal) | CPT/HCPCS: 84403 ==